=== PATIENT | male | born 1985 | race Caucasian/White ===

== ENCOUNTER 2020-11-06 19:20 | Emergency (ER) | payer SELFPAY ==
[2020-11-06 20:10] LABS: Bilirubin Negative (Negative); Blood, Urine Negative (Negative); Clarity Clear (Clear); Glucose, Urine (Dipstick) Normal (Negative); Ketone, Urine Negative (Negative); Leukocyte Negative Leu/uL (Negative); Nitrite Negative (Negative); Protein, Urine (Dipstick) 20 mg/dL (Neg-Trace); pH, Urine 5.5 (5.0-9.0)
[2020-11-06 21:31] LABS: #Basophils 0.1 thou/uL (0.0-0.2); #Eosinphils 0.3 thou/uL (0.0-0.7); #Lymphocytes 4.6 thou/uL (1.20-3.40); #Monocytes 0.9 thou/uL (0.11-0.59); #Neutrophils 5.5 thou/uL (1.40-6.50); %Basophils 0.6 % (0.0-1.0); %Eosinophils 2.6 % (0.0-10.0); %Lymphocytes 40.9 % (21.0-51.0); %Monocytes 7.8 % (0.0-10.0); %Neutrophils 48.1 % (42.0-75.0); Hemoglobin 16.2 g/dL (14.0-18.0); Mean Corpuscular HGB CONC 35.7 g/dL (32.0-36.0); Mean Corpuscular Hemoglobin 32.9 pg (27.0-31.0); Mean Corpuscular Volume 92.1 fL (78.0-98.0); Mean Platelet Volume 8.3 fL (7.4-10.4); Platelet Count 299 thou/uL (130-400); Red Blood Cell (RBC) Count 4.93 mill/uL (4.70-6.10); White Blood Cell (WBC) Count 11.3 thou/uL (4.8-10.8)
[2020-11-06 21:52] LABS: ALT (SGPT) 30 U/L (8-55); AST (SGOT) 23 U/L (5-34); Albumin 4.8 g/dL (3.5-5.0); Alkaline Phosphatase 116 U/L (40-110); Anion Gap 12 mmol/L (10-20); BUN (Urea Nitrogen) 16 mg/dL (8.9-20.6); Bilirubin, Total 0.5 mg/dL (0.2-1.2); CK (CPK) 149 U/L (30-200); Calc. Creatinine Clearance 0 mL/min (70-130); Calcium 9.3 mg/dL (7.8-10.44); Carbon Dioxide 27 mmol/L (22-29); Chloride 107 mmol/L (98-107); Globulin 2.6 g/dL (2.4-3.5); Glucose 88 mg/dL (70-105); Potassium 4.4 mmol/L (3.5-5.1); Protein, Total 7.4 g/dL (6.0-8.3); Sodium 142 mmol/L (136-145)
== END 2020-11-06 23:27 | disposition home or self-care (01) ==
LOC: ERS 19:20
DX: N20.2 Calculus of kidney with calculus of ureter (principal)
CPT/HCPCS: 74176; 80053; 81003; 82550; 85025